=== PATIENT | male | born 1965 | race Caucasian/White ===

== ENCOUNTER 2017-08-18 05:18 | Emergency (ER) | payer OTHER ==
[2017-08-18 05:42] LABS: BASO % 0.1 % (0.0-2.0); EOS # 0.1 K/uL (0.0-0.7); HEMATOCRIT 40.7 % (35.0-51.0); LYMPH # 1.9 K/uL (1.0-4.3); LYMPH % 20.9 % (20.0-40.0); MEAN CELL VOLUME 92.5 fL (80.0-94.0); MEAN CORPUSCULAR HGB CONC 34.6 g/dL (33.0-37.0); MEAN PLATELET VOLUME 7.9 fL (7.2-11.7); RED CELL DISTRIBUTION WIDTH 13.6 % (11.5-14.5)
[2017-08-18 05:45] LABS: RBC URINE 2 /hpf (0-3); URINE BILIRUBIN NEGATIVE (NEGATIVE); URINE BLOOD NEGATIVE (NEGATIVE); URINE COLOR Yellow (YELLOW); URINE GLUCOSE (UA) NORMAL (Normal); URINE KETONE NEGATIVE (NEGATIVE); URINE LEUKOCYTE ESTERASE NEG Leu/uL (Negative); URINE PROTEIN NEGATIVE (NEGATIVE); URINE UROBILINOGEN NORMAL mg/dL (0.2-1.0); WBC URINE 1 /hpf (0-5)
[2017-08-18 05:48] LABS: CHLORIDE 104 mmol/L (98-107); POTASSIUM 3.5 mmol/L (3.6-5.2); SODIUM 142 mmol/L (132-148)
[2017-08-18 05:50] LABS: GFR AFRICAN-AMERICAN > 60
[2017-08-18 05:51] LABS: ALB/GLOB RATIO 1.1 (1.0-2.1); ALKALINE PHOSPHATASE 90 U/L (38-126); ALT/SGPT 54 U/L (21-72); AST/SGOT 43 U/L (17-59); BILIRUBIN,TOTAL 0.5 mg/dL (0.2-1.3); BLOOD UREA NITROGEN 14 mg/dL (9-20); CALCIUM 8.9 mg/dl (8.6-10.4); CARBON DIOXIDE 24 mmol/L (22-30); GLUCOSE,RANDOM 135 mg/dL (75-110); TOTAL PROTEIN 7.2 g/dL (6.3-8.3)
[2017-08-18] MEDS ORDERED: Sodium Chloride 0.9% 1,000 ML IV ONE (06:18)
--- NOTE | 2017-08-18 06:32 | C.PDOC ---
History Of Present Illness 52 year old male presents to the ED with complaints of sudden onset of epigastric pain described as sharp and burning beginning this morning at 2 am with associated vomiting and subjective fever. Patient states fever was measured at "104-105" this weekend. He notes a history of gall stones and states current pain is "worse then normal gall stone pain." Patient denies weakness, numbness, shortness of breath, diarrhea, rash, or recent travel. Time Seen by Provider: 08/18/17 06:15 Chief Complaint (Nursing): Abdominal Pain History Per: Patient History/Exam Limitations: no limitations Onset/Duration Of Symptoms: Hrs Current Symptoms Are (Timing): Still Present Location Of Pain/Discomfort: Epigastric Quality Of Discomfort: Sharp, Burning Associated Symptoms: Fever, Vomiting. denies: Diarrhea Alleviating Factors: None Recent travel outside of the [place]: No Past Medical History Reviewed: Historical Data, Nursing Documentation, Vital Signs Vital Signs: Last Vital Signs Temp 97.9 F 08/18/17 05:29 Pulse 72 08/18/17 05:29 Resp 20 08/18/17 05:29 BP 130/77 08/18/17 05:29 Pulse Ox 96 08/18/17 06:52 Family History: States: Unknown Family Hx - Social History Hx Alcohol Use: Yes Hx Substance Use: No - Immunization History Hx Tetanus Toxoid Vaccination: No Hx Influenza Vaccination: No Hx Pneumococcal Vaccination: No Review Of Systems Constitutional: Positive for: Fever (subjective), Sweats. Negative for: Chills Cardiovascular: Negative for: Palpitations Respiratory: Negative for: Cough, Shortness of Breath Gastrointestinal: Positive for: Vomiting, Abdominal Pain (epigastric pain ). Negative for: Diarrhea Skin: Negative for: Rash Neurological: Negative for: Weakness, Numbness Physical Exam - Physical Exam Appears: Non-toxic, In Acute Distress (patient appears to be in moderate painful distress ) Skin: Warm, Diaphoretic Head: Atraumatic, Normacephalic Eye(s): bilateral: Normal Inspection, PERRL, EOMI Oral Mucosa: Moist Neck: Supple Chest: Symmetrical, No Deformity Cardiovascular: Rhythm Regular, No Murmur Respiratory: Normal Breath Sounds, No Rales, No Rhonchi, No Wheezing Gastrointestinal/Abdominal: Bowel Sounds (active bowel sounds), Soft, Tenderness (RUQ tenderness), No Distention, No Guarding, No Rebound Extremity: Normal ROM, No Tenderness, No Pedal Edema, No Calf Tenderness, Capillary Refill (good capillary refill, less than two seconds ), No Deformity, No Swelling Neurological/Psych: Oriented x3, Normal Speech, Normal Cognition, Normal Motor, Normal Sensation ED Course And Treatment - Laboratory Results Result Diagrams: 08/18/17 05:39 08/18/17 05:39 ECG: Interpreted By Me ECG Rhythm: Sinus Rhythm Rate From EC (bpm) O2 Sat by Pulse Oximetry: 96 (on RA) Pulse Ox Interpretation: Normal Progress Note: EKG and labs were ordered. Patient was given Toradol, morphine, zofran, protonix, and IV fluids. Disposition - Disposition Referrals: Non [facility] Provider, [Primary Care Provider] - Disposition Time: 07:05 Condition: STABLE Forms: [facility] ([facility]) - POA Present On Arrival: None - Clinical Impression Clinical Impression: Abdominal pain - PA / [employer] / Resident Statement MD/DO has reviewed & agrees with the documentation as recorded. - Scribe Statement The provider has reviewed the documentation as recorded by the Scribe Inge Lainez All medical record entries made by the Scribe were at my direction and personally dictated by me. I have reviewed the chart and agree that the record accurately reflects my personal performance of the history, physical exam, medical decision making, and the department course for this patient. I have also personally directed, reviewed, and agree with the discharge instructions and disposition. Physician Patient Turnover Patient Signed Over To: Kay Newman Handoff Comments: Pending ultrasound and labs
[2017-08-18] MEDS ORDERED: Sodium Chloride 0.9% 1,000 ML ONE (06:37)
[2017-08-18] MEDS ORDERED: Morphine 4 MG/ML VIAL ONE (06:38)
[2017-08-18 08:10] VITALS: RESP 16
--- NOTE | 2017-08-18 09:04 | US ---
Right upper quadrant abdominal ultrasound History: Cholelithiasis. Comparison: None available. Technique: Real-time sonography was performed through the right upper quadrant of the abdomen. Findings: Liver: 18.2 centimeters in length. Increased echogenicity of the hepatic parenchymal cortex suggestive for fatty infiltration versus hepatic parenchymal disease. Clinical correlation. Mild prominence of the intrahepatic biliary ductal system. Gallbladder: Cholelithiasis with prominent calculi measuring up to 3.5 centimeters noted at the neck of the gallbladder. Normal wall thickness of 2.5 millimeters. Negative sonographic Madrigal's sign. Common bile duct is prominent measuring up to 6 millimeters. Pancreas not well visualized. Visualized aorta and IVC are preserved. Right kidney: 15.9 x 4.9 x 4.9 centimeters. No calculi or hydronephrosis. Question duplicated right renal collecting system. Impression: Cholelithiasis with prominent gallbladder calculi seen at the neck of the gallbladder measuring 3.5 cm. Normal wall thickness. Negative sonographic Madrigal's sign. Prominent common bile duct measuring up to 6 millimeters. Mild prominence of the intrahepatic biliary ductal system. Increased echogenicity of the hepatic parenchymal cortex suggestive for fatty infiltration versus hepatic parenchymal disease. Clinical correlation. Prominent liver measuring up to 18 centimeters. Pancreas not well visualized. Question duplicated right renal collecting system.
[2017-08-18 10:27] VITALS: BP 136/81; PULSE 69; TEMP 98; O2SAT 98
== END 2017-08-18 10:20 | disposition home or self-care (01) ==
LOC: C.ER 05:18 → SUPCPDRO 05:18 → C.ER 10:20
DX: R10.9 Unspecified abdominal pain (principal); K80.20 Calculus of gallbladder without cholecystitis without obstruction
CPT/HCPCS: 76705; 80053; 81001; 83690; 84484; 85025; 96361; 96374; 96375; 99285; C9113; J1885; J2270; J2405; J7040